=== PATIENT | male | born 1980 | race Two or more races ===

== ENCOUNTER 2024-05-30 17:10 | Emergency (ER) | payer BC, OTHER ==
[~2024-05-30] VITALS: Ht 177.8 cm; Wt 80.1 kg
--- NOTE | 2024-05-30 17:48 | DVH ---
CLINICAL INDICATION: RIGHT SHOULDER PAIN TECHNIQUE: 4 views of the right shoulder. Comparison: None FINDINGS/IMPRESSION: There is no evidence of acute fracture Unable to adequately evaluate for dislocation due to suboptimal views. Recommend repeat right shoulde r x-ray with internal rotation and internal rotation views. Soft tissues are unremarkable.
[2024-05-30] MEDS: SODIUM CHLORIDE 0.9% 1,000 ML IV ONE (18:23)
[2024-05-30] MEDS: ONDANSETRON HCL 4 MG/2 ML VIAL IV ONE (18:23)
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
[2024-05-30] MEDS: PROPOFOL 10 MG/ML 20 ML IV ONE (18:25)
[2024-05-30] MEDS: MORPHINE SULFATE 4 MG/ML SYR/VIAL IV ONE (18:25)
[2024-05-30 18:57] VITALS: PULSE 91; RESP 23; O2SAT 98
--- NOTE | 2024-05-30 18:58 | DVH ---
CLINICAL INDICATION: POST REDUCTION TECHNIQUE: 1 radiographic views of the right shoulder were obtained. Comparison: XY R SHOULDER 2+ VIEW XRAY on DOS: 05/30/24 FINDINGS/IMPRESSION: There is no evidence of acute fracture or dislocation. Questionable nondisplaced fracture through the greater tuberosity of the proximal right humerus is se en The visualized joint space is well maintained. The alignment is anatomical. There is no radiopaque foreign body. HS:Y
[2024-05-30 19:40] VITALS: PULSE 68; RESP 25; TEMP 99; O2SAT 98
[2024-05-30 19:52] VITALS: BP 116/83; PULSE 68; RESP 25
== END 2024-05-30 19:52 | disposition home or self-care (01) ==
LOC: ER 17:10
DX: S43.004A Unspecified dislocation of right shoulder joint, initial encounter (principal); V86.56XA Driver of dirt bike or motor/cross bike injured in nontraffic accident, initial encounter; Y93.89 Activity, other specified; Y92.89 Other specified places as the place of occurrence of the external cause; Y99.8 Other external cause status
CPT/HCPCS: 23650; 73020; 73030; 96361; 96374; 96375; 99152; 99153; 99285; J2270; J2405; J2704; J7030